=== PATIENT | female | born 1995 | race Caucasian/White ===

== ENCOUNTER 2022-12-22 02:54 | Emergency (ER) | payer OTHER ==
[~2022-12-22] VITALS: Ht 162.6 cm; Wt 68.0 kg
--- NOTE | 2022-12-22 03:00 | NUR ---
Dr. Montaño at bedside assessing patient.
--- NOTE | 2022-12-22 03:00 | NUR ---
Pt to bed 12
[2022-12-22] MEDS ORDERED: ACETAMINOPHEN 325 MG TAB PO ONE (03:15)
[2022-12-22] MEDS ORDERED: NACL 0.9% 1,000 ML IV ONE (03:15)
[2022-12-22 03:19] VITALS: BP 130/72
--- NOTE | 2022-12-22 03:25 | NUR ---
Patient resting in bed, A/Ox4, chest rise and fall symmetrical, no s/s of distress, on monitor.
--- NOTE | 2022-12-22 04:00 | NUR ---
Patient declined TDAP vaccine which was prescribed by Dr. Montaño. Patient verbally educated on risks of not receiving TDAP vaccine, patient verbalized understanding, no further questions.
--- NOTE | 2022-12-22 04:10 | NUR ---
Patient resting in bed, A/Ox4, chest rise and fall symmetrical, no c/o pain or s/s of distress, on monitor.
[2022-12-22 04:42] VITALS: BP 112/71
--- NOTE | 2022-12-22 04:42 | NUR ---
Patient discharged with v/s stable. Written and verbal after care instructions given and explained. Patient verbalized understanding. Ambulatory with in custody. All questions addressed prior to discharge. Advised to follow up with PMD. Prebook information given to [place] [employer] EPI MARK NUMBER [id number].
== END 2022-12-22 04:42 | disposition home or self-care (01) ==
LOC: MED 02:54
DX: S00.01XA Abrasion of scalp, initial encounter (principal); S80.211A Abrasion, right knee, initial encounter; Y04.0XXA Assault by unarmed brawl or fight, initial encounter; Y93.89 Activity, other specified; Y92.89 Other specified places as the place of occurrence of the external cause; Y99.8 Other external cause status
CPT/HCPCS: 73562; 96360; 99283; Q0092; 90715; J7030